=== PATIENT | male | born 1955 | race African-American/Black ===

== ENCOUNTER 2020-10-15 10:33 | Inpatient (IN) | payer OTHER ==
[2020-10-13 13:42] VITALS: BMI 27.0
[2020-10-15] MEDS ORDERED: MIDAZOLAM HCL 2 MG/2 ML SINGLE DOSE VIAL ONE (12:30)
[2020-10-15] MEDS ORDERED: SODIUM CHLORIDE 0.9% P/F 10 ML VIAL IJ ONE (12:31)
[2020-10-15] MEDS ORDERED: BUPIVACAINE LIPOSOME/PF (EXPAREL) 266 MG/20 ML VIAL ONE (12:31)
[2020-10-15] MEDS ORDERED: PROPOFOL 20 ML ONE ×2 (13:20)
[2020-10-15] MEDS ORDERED: ePHEDrine SULFATE 50 MG/1 ML AMPULE ONE (13:24)
[2020-10-15] MEDS ORDERED: VANCOMYCIN 1,000 MG VIAL (RESTRICTED TO ID ONLY) ONE (13:26)
[2020-10-15] MEDS ORDERED: ceFAZolin SODIUM 1 GM VIAL ONE ×2 (13:26→15:20)
[2020-10-15] MEDS ORDERED: DEXAMETHASONE SOD PHOSPHATE 4 MG/1 ML VIAL ONE (13:32)
[2020-10-15] MEDS ORDERED: KETOROLAC TROMETHAMINE 30 MG/1 ML VIAL ONE (13:32)
[2020-10-15] MEDS ORDERED: ONDANSETRON 4 MG/2 ML VIAL ONE (13:32)
[2020-10-15] MEDS ORDERED: TRANEXAMIC ACID 1000 MG/10 ML VIAL ONE ×2 (13:35→13:38)
[2020-10-15] MEDS ORDERED: PHENYLEPHRINE HCL 10 MG/1 ML SINGLE DOSE VIAL ONE (14:02)
[2020-10-15] MEDS ORDERED: BENZOIN/ALOE VERA/STORAX/TOLU 58 ML BOTTLE ONE (15:08)
[2020-10-15] MEDS ORDERED: MAGNESIUM HYDROX 2400MG/30ML ORAL SUSPENSION 30 ML CUP PO PRN (16:23)
[2020-10-15] MEDS ORDERED: ONDANSETRON 4 MG/2 ML VIAL IVPUSH PRN (16:23)
[2020-10-15] MEDS ORDERED: MAG HYDROX/AL HYDROX/SIMETH 30 ML UNIT-DOSE CUP PO PRN (16:23)
[2020-10-15] MEDS ORDERED: oxyCODONE HCL 5 MG TABLET PO PRN (16:29)
[2020-10-15] MEDS ORDERED: LACTATED RINGERS SOLUTION 1,000 ML IV SCH (16:30)
[2020-10-15] MEDS: ACETAMINOPHEN 325 MG TABLET (FP) PO SCH (16:40)
[2020-10-15] MEDS ORDERED: ACETAMINOPHEN 325 MG TABLET (FP) ONE (16:43)
[2020-10-15] MEDS: CEFAZOLIN 2 GM/D5W 2 GM/50 ML ML IVPB SCH (21:14)
[2020-10-15] MEDS: SENNOSIDES/DOCUSATE COMBO (SENNA PLUS) TABLET (UD) PO SCH (21:15)
[2020-10-15] MEDS ORDERED: ASPIRIN 325 MG TABLET PO SCH (22:00)
[2020-10-15] MEDS: ATORVASTATIN CA 40 MG TABLET (FP) PO SCH (22:30)
[2020-10-16] MEDS: CEFAZOLIN 2 GM/D5W 2 GM/50 ML ML IVPB SCH ×2 (03:29→09:12)
[2020-10-16] MEDS: ACETAMINOPHEN 325 MG TABLET (FP) PO SCH ×5 (03:29→21:34)
[2020-10-16 08:14] LABS: CALCIUM 7.8 mg/dl (8.5-10); CREATININE 1.6 mg/dl (0.55-1.3)
[2020-10-16 08:25] LABS: HEMATOCRIT 30.5 % (35.4-49); HEMOGLOBIN 10.2 GM/dl (11.7-16.9); MCH 30.3 pg (25.7-33.7); MCHC 33.4 g/dl (32.0-35.9); MEAN CELL VOLUME 90.7 fl (80-96); MEAN PLT VOLUME 9.2 fl (7.5-11.1); PLATELET COUNT 113 K/MM3 (134-434); RBC 3.36 M/mm3 (4.00-5.60); RDW 11.8 % (11.9-15.9); WHITE BLOOD COUNT 9.2 K/mm3 (4.0-10.8)
[2020-10-16 08:37] LABS: POTASSIUM 2.9 mmol/L (3.5-5.1)
[2020-10-16] MEDS: amLODIPine BESYLATE 5 MG TABLET (FP) PO SCH (09:11)
[2020-10-16] MEDS: CELECOXIB 200 MG CAPSULE PO SCH (09:11)
[2020-10-16] MEDS: VALSARTAN 160 MG TABLET PO SCH (09:11)
[2020-10-16] MEDS: HYDROCHLOROTHIAZIDE 12.5 MG CAPSULE (FP) PO SCH (09:11)
[2020-10-16] MEDS: ASPIRIN COATED 81 MG TABLET.EC PO SCH ×2 (09:11→21:33)
[2020-10-16] MEDS: SENNOSIDES/DOCUSATE COMBO (SENNA PLUS) TABLET (UD) PO SCH ×2 (09:12→21:33)
[2020-10-16] MEDS: PANTOPRAZOLE 40 MG TABLET PO SCH (09:16)
[2020-10-16] MEDS: POTASSIUM CHLORIDE TABS 20 MEQ TABLET.ER (FP) PO SCH ×3 (10:09→21:33)
[2020-10-16 10:53] LABS: MAGNESIUM 1.7 mg/dL (1.8-2.4)
[2020-10-16] MEDS: oxyCODONE HCL 5 MG TABLET PO PRN ×2 (14:23→18:07)
[2020-10-16] MEDS: ATORVASTATIN CA 40 MG TABLET (FP) PO SCH (21:34)
[2020-10-17] MEDS: ACETAMINOPHEN 325 MG TABLET (FP) PO SCH ×2 (05:30→09:44)
[2020-10-17 06:30] VITALS: PULSE 68
[2020-10-17 08:11] LABS: CALCIUM 7.6 mg/dl (8.5-10); CREATININE 1.3 mg/dl (0.55-1.3); MAGNESIUM 1.9 mg/dL (1.8-2.4); POTASSIUM 3.5 mmol/L (3.5-5.1)
[2020-10-17 08:37] LABS: HEMATOCRIT 26.8 % (35.4-49); HEMOGLOBIN 8.9 GM/dl (11.7-16.9); MCH 30.3 pg (25.7-33.7); MCHC 33.4 g/dl (32.0-35.9); MEAN CELL VOLUME 90.8 fl (80-96); MEAN PLT VOLUME 10.3 fl (7.5-11.1); PLATELET COUNT 87 K/MM3 (134-434); RBC 2.95 M/mm3 (4.00-5.60); RDW 12.1 % (11.9-15.9); WHITE BLOOD COUNT 5.4 K/mm3 (4.0-10.8)
[2020-10-17 09:28] VITALS: BP 150/81; TEMP 98.4
[2020-10-17] MEDS: oxyCODONE HCL 5 MG TABLET PO PRN (09:28)
[2020-10-17] MEDS: PANTOPRAZOLE 40 MG TABLET PO SCH (09:29)
[2020-10-17] MEDS: ASPIRIN COATED 81 MG TABLET.EC PO SCH (09:29)
[2020-10-17] MEDS: SENNOSIDES/DOCUSATE COMBO (SENNA PLUS) TABLET (UD) PO SCH (09:29)
[2020-10-17] MEDS: VALSARTAN 160 MG TABLET PO SCH (09:29)
[2020-10-17] MEDS: HYDROCHLOROTHIAZIDE 12.5 MG CAPSULE (FP) PO SCH (09:29)
[2020-10-17] MEDS: CELECOXIB 200 MG CAPSULE PO SCH (09:29)
[2020-10-17] MEDS: amLODIPine BESYLATE 5 MG TABLET (FP) PO SCH (09:29)
== END 2020-10-17 12:50 | disposition home or self-care (01) | DRG 470 ==
LOC: FM/S 10:33 → UNDOADMIN 10:33 → MERGE 12:00
PROVIDERS: ADMIT Orthopaedic Surgery Orthopaedic Surgery of the Spine; ATTEND Orthopaedic Surgery Orthopaedic Surgery of the Spine
PROC: 0SRD0J9 Replacement of Left Knee Joint with Synthetic Substitute, Cemented, Open Approach (ICD-10-PCS; principal; 2020-10-15 12:00)
DX: M17.12 Unilateral primary osteoarthritis, left knee (principal); I25.10 Atherosclerotic heart disease of native coronary artery without angina pectoris; E78.5 Hyperlipidemia, unspecified; I10 Essential (primary) hypertension; E87.6 Hypokalemia; Z95.5 Presence of coronary angioplasty implant and graft
CPT/HCPCS: 36415; 73560-TC-LT-FY; 80048; 83735; 85027; 88305-TC; 88311-TC; 94760; 97010-GP; 97116-GP; 97163-GP